=== PATIENT | male | born 1930 | race Caucasian/White ===

== ENCOUNTER 2017-02-07 11:00 | Inpatient (IN) | payer MEDICARE ==
[~2017-02-07 11:00] MED LIST: COZAAR100 M1 PO; ZOCOR40 M1 PO; ZYLOPRIM100 M1 PO
[2017-02-07 12:40] LABS: BASO % 0.1 % (0-2); EOSINOPHIL ABSOLUTE COUNT 0.1 tho/cmm (0.0-0.7); HGB-HEMOGLOBIN 12.6 gm/dl (13.5-17.0); IMMATURE GRANULOCYTES ABSOLUTE 0.01 tho/cmm (0-0.03); IMMATURE GRANULOCYTES PERCENT 0.1 % (0-0.3); LYMPH % 20.1 % (20-45); LYMPH ABSOLUTE COUNT 1.6 tho/cmm (0.8-4.5); MCH (MEAN CORPUSCULAR HGB) 25.1 pg (28.0-32.0); MCHC MEAN CORPUSCULAR HGB CONC 32.3 % (32.0-36.0); MCV (MEAN CELL VOLUME) 77.8 fl (82.0-96.0); MEAN PLATELET VOLUME 8.3 cmc (9.4-12.4); MONO % 10.7 % (0-12); MONOCYTE ABSOLUTE COUNT 0.8 tho/cmm (0.0-1.2); NEUTROPHIL ABSOLUTE COUNT 5.3 tho/cmm (1.6-8.0); NEUTROPHIL-AUTOMATED 5.3 tho/cmm (1.6-8.0); PLATELET COUNT 426 tho/cmm (150-450); RED BLOOD COUNT 5.01 mil/cmm (4.40-5.70); RED CELL DISTRIBUTION WIDTH 15.5 % (12.4-16.4); WHITE BLOOD COUNT 7.8 tho/cmm (4.0-10.0)
[2017-02-07 12:52] LABS: ANION GAP 11 mmol/L (0-20); BLOOD UREA NITROGEN 11 mg/dl (6-24); CALCIUM 8.7 mg/dl (8.5-10.5); CARBON DIOXIDE-VENOUS 29 mmol/L (22-32); CHLORIDE 102 mmol/l (96-110); CREATININE 1.17 mg/dl (0.60-1.30); GLUCOSE 99 mg/dL (70-110); POTASSIUM 4.2 mmol/L (3.7-5.1); SODIUM 138 mmol/L (135-145); eGFR VALUE FOR BLACK 65 mL/Min
[2017-02-07 16:37] LABS: BASO % 0.1 % (0-2); EOS % 0.1 % (0-7); HCT-HEMATOCRIT 36.1 % (36.0-53.5); HGB-HEMOGLOBIN 11.7 gm/dl (13.5-17.0); IMMATURE GRANULOCYTES ABSOLUTE 0.03 tho/cmm (0-0.03); IMMATURE GRANULOCYTES PERCENT 0.2 % (0-0.3); LYMPH % 6.1 % (20-45); LYMPH ABSOLUTE COUNT 0.9 tho/cmm (0.8-4.5); MCH (MEAN CORPUSCULAR HGB) 25.1 pg (28.0-32.0); MCHC MEAN CORPUSCULAR HGB CONC 32.4 % (32.0-36.0); MCV (MEAN CELL VOLUME) 77.3 fl (82.0-96.0); MONO % 0.9 % (0-12); MONOCYTE ABSOLUTE COUNT 0.1 tho/cmm (0.0-1.2); NEUTROPHIL ABSOLUTE COUNT 13.1 tho/cmm (1.6-8.0); NEUTROPHIL-AUTOMATED 13.1 tho/cmm (1.6-8.0); NEUTROPHILS % 92.6 % (40-80); PLATELET COUNT 389 tho/cmm (150-450); RED BLOOD COUNT 4.67 mil/cmm (4.40-5.70); RED CELL DISTRIBUTION WIDTH 15.4 % (12.4-16.4)
[2017-02-07 16:51] LABS: WHITE BLOOD COUNT 14.2 tho/cmm (4.0-10.0)
[2017-02-07 16:54] LABS: ANION GAP 14 mmol/L (0-20); BLOOD UREA NITROGEN 13 mg/dl (6-24); CALCIUM 7.2 mg/dl (8.5-10.5); CARBON DIOXIDE-VENOUS 21 mmol/L (22-32); CHLORIDE 107 mmol/l (96-110); CREATININE 1.13 mg/dl (0.60-1.30); MAGNESIUM 1.7 mg/dl (1.8-2.6); SODIUM 138 mmol/L (135-145); eGFR VALUE FOR BLACK 68 mL/Min
[2017-02-07 16:55] LABS: GLUCOSE 149 mg/dL (70-110)
[2017-02-08 04:52] LABS: HCT-HEMATOCRIT 34.3 % (36.0-53.5); MCV (MEAN CELL VOLUME) 76.9 fl (82.0-96.0); RED CELL DISTRIBUTION WIDTH 15.3 % (12.4-16.4)
[2017-02-10 06:34] LABS: BASO % 0.1 % (0-2); EOS % 1.1 % (0-7); EOSINOPHIL ABSOLUTE COUNT 0.1 tho/cmm (0.0-0.7); HCT-HEMATOCRIT 32.4 % (36.0-53.5); HGB-HEMOGLOBIN 10.6 gm/dl (13.5-17.0); IMMATURE GRANULOCYTES ABSOLUTE 0.02 tho/cmm (0-0.03); IMMATURE GRANULOCYTES PERCENT 0.2 % (0-0.3); LYMPH % 13.3 % (20-45); LYMPH ABSOLUTE COUNT 1.6 tho/cmm (0.8-4.5); MCH (MEAN CORPUSCULAR HGB) 25.2 pg (28.0-32.0); MCHC MEAN CORPUSCULAR HGB CONC 32.7 % (32.0-36.0); MEAN PLATELET VOLUME 8.4 cmc (9.4-12.4); MONO % 14.8 % (0-12); MONOCYTE ABSOLUTE COUNT 1.8 tho/cmm (0.0-1.2); NEUTROPHIL ABSOLUTE COUNT 8.6 tho/cmm (1.6-8.0); NEUTROPHIL-AUTOMATED 8.6 tho/cmm (1.6-8.0); NEUTROPHILS % 70.5 % (40-80); PLATELET COUNT 387 tho/cmm (150-450); RED BLOOD COUNT 4.21 mil/cmm (4.40-5.70); RED CELL DISTRIBUTION WIDTH 15.7 % (12.4-16.4); WHITE BLOOD COUNT 12.2 tho/cmm (4.0-10.0)
[2017-02-10 06:45] LABS: ANION GAP 11 mmol/L (0-20); BLOOD UREA NITROGEN 13 mg/dl (6-24); CALCIUM 8.1 mg/dl (8.5-10.5); CARBON DIOXIDE-VENOUS 27 mmol/L (22-32); CHLORIDE 104 mmol/l (96-110); CREATININE 0.98 mg/dl (0.60-1.30); GLUCOSE 99 mg/dL (70-110); POTASSIUM 4.2 mmol/L (3.7-5.1); SODIUM 138 mmol/L (135-145); eGFR VALUE FOR BLACK 81 mL/Min
[2017-02-11] MEDS ORDERED: ULTRAM50 M1 PO (12:29)
== END 2017-02-11 13:10 | DRG 164 ==
LOC: SHSC 11:00 → ORW 13:06 → PACU 16:24 → CCU 17:50 → PCUB 02-10 10:15
PROVIDERS: Internal Medicine Pulmonary Disease; ADMIT Surgery
PROC: 0BDP4ZZ Extraction of Left Pleura, Percutaneous Endoscopic Approach (ICD-10-PCS; principal; 2017-02-07)
DX: J90 Pleural effusion, not elsewhere classified (principal); J93.9 Pneumothorax, unspecified; J44.9 Chronic obstructive pulmonary disease, unspecified; E11.9 Type 2 diabetes mellitus without complications; E78.5 Hyperlipidemia, unspecified; I10 Essential (primary) hypertension; M19.90 Unspecified osteoarthritis, unspecified site; Z77.090 Contact with and (suspected) exposure to asbestos; M10.9 Gout, unspecified; J98.4 Other disorders of lung
CPT/HCPCS: J0690; J1650; J2250; J3010; J3480; J7030; J7040